=== PATIENT | female | born 1965 ===

== ENCOUNTER 2021-03-03 23:07 | Emergency (ER) | payer MEDICAID ==
[~2021-03-03] VITALS: Ht 162.6 cm; Wt 72.7 kg
--- NOTE | 2021-03-03 23:38 | NUR ---
patient found down in the [facility] having a seizure per ems. upon patinet arriving to ER, patient repeating herself and is A/Ox1
--- NOTE | 2021-03-03 23:38 | NUR ---
SEIZURE PADS IN PLACE
[2021-03-04 02:05] VITALS: BP 92/62
--- NOTE | 2021-03-04 02:14 | NUR ---
patient refusing labs. cherie bryan aware and okay with not having labs done on patient
--- NOTE | 2021-03-04 03:08 | NUR ---
patient swearing and yelling at staff on the way out. Patient proceeded to leave. Security called to ensure patient left ER and hospital building. laundry press operator Raven aware of situation Addendum: 03/04/21 at 0421 by [email or web address] *patient swearing and being verbally abusive towards staff in ER*
--- NOTE | 2021-03-04 03:08 | NUR ---
patient eloped from ER. Olga LION assisted in room with patient. patient ambulated by self without assistance and is alert and oriented times 4. Brad MENDOZA aware
== END 2021-03-04 03:13 | disposition left against medical advice (07) ==
LOC: EDBD 23:07 → ED 23:45
DX: F31.9 Bipolar disorder, unspecified (principal); F10.120 Alcohol abuse with intoxication, uncomplicated; R94.31 Abnormal electrocardiogram [ECG] [EKG]; Y90.0 Blood alcohol level of less than 20 mg/100 ml; Z72.9 Problem related to lifestyle, unspecified
CPT/HCPCS: 93005; 99283